=== PATIENT | male | born 1965 | race Caucasian/White ===

== ENCOUNTER → 2021-05-01 | Outpatient (CLI) | payer OTHER ==
--- NOTE | 2021-05-01 14:00 | REP ---
INDICATION: RT HAND FX. COMPARISON: None. TECHNIQUE: Multiple sequences obtained in the axial, coronal and sagittal planes. FINDINGS: There is a nondisplaced fracture at the base of the 5th proximal phalanx. There is mild marrow edema in the adjacent distal 5th metacarpal suggesting a mild bone bruise. No other fracture is seen of the visualized osseous structures. Subcentimeter subcortical cyst is seen in the base of the lunate bone. There is mild subcortical marrow edema in the trapezoid bone. Subcentimeter subcortical cysts are seen in the heads of the 2nd and 3rd metacarpals. Flexor and extensor tendons appear intact without significant tenosynovitis. The collateral ligaments of the digits appear intact. There is a small amount of fluid in the distal radioulnar joint. The triangular fibrocartilage complex appears intact. The scapholunate and lunatotriquetral ligaments appear intact. No ganglion cyst is seen. IMPRESSION: Nondisplaced fracture of the base of the 5th proximal phalanx. Mild marrow edema in the distal 5th metacarpal may represent a mild bone bruise. <Electronically signed by Robson Colon > 05/01/21 [id number]
== END ==
LOC: M RAD 06:40
PROVIDERS: ATTEND Family Medicine
DX: S62.646A Nondisplaced fracture of proximal phalanx of right little finger, initial encounter for closed fracture (principal); X58.XXXA Exposure to other specified factors, initial encounter; Y92.9 Unspecified place or not applicable; Y93.9 Activity, unspecified; Y99.9 Unspecified external cause status